=== PATIENT | male | born 1995 | race Hispanic/Latino ===

== ENCOUNTER 2020-04-12 08:35 | Emergency (ER) | payer OTHER ==
[~2020-04-12] VITALS: Ht 172.7 cm; Wt 84.1 kg
[~2020-04-12 08:35] MED LIST: AMOXICILLIN500 MG OR; FLOXIN OTIC0.3 % OT; NO MEDS
[2020-04-12 10:45] LABS: URINE BILIRUBIN - DIPSTICK NEGATIVE (NEGATIVE); URINE BLOOD DIPSTICK NEGATIVE (NEGATIVE); URINE COLOR YELLOW; URINE GLUCOSE - DIPSTICK NEGATIVE (NEGATIVE); URINE KETONE NEGATIVE (NEGATIVE); URINE LEUK ESTERASE NEGATIVE (NEGATIVE); URINE NITRITE - DIPSTICK NEGATIVE (Negative); URINE PROTEIN - DIPSTICK NEGATIVE (NEG-TRACE); URINE UROBILINOGEN - DIPSTICK 0.2 E.U./dL (0.2)
[2020-04-12] MEDS ORDERED: FLEXERIL5 M1 PO (10:52)
[2020-04-12] MEDS ORDERED: MOTRIN800 MG PO (10:52)
[2020-04-12 11:01] VITALS: BP 135/79
== END 2020-04-12 11:15 | disposition home or self-care (01) | DRG 563 ==
LOC: ED 08:35
DX: S39.012A Strain of muscle, fascia and tendon of lower back, initial encounter (principal); X50.3XXA Overexertion from repetitive movements, initial encounter; Y93.B9 Activity, other involving muscle strengthening exercises; Y92.830 Public park as the place of occurrence of the external cause